=== PATIENT | male | born 1995 | race African-American/Black ===

== ENCOUNTER 2021-10-22 08:00 | Day surgery (SDC) | payer OTHER, SELFPAY ==
[2021-10-15 08:23] VITALS: BMI 31.0
--- NOTE | 2021-10-22 | PATH_ITS ---
[facility] Accession Number: [id number] . 01 Material submitted: . forehead - RIGHT FOREHEAD LIPOMA . 01 Diagnosis: Right Forehead, Excisions: Consistent with neuroma; see comment. MRV 10/25/2021 1026 Local . 01 Comment: Sections show haphazardly arranged nerve bundles in the deep dermis and superficial subcutaneous tissue, consistent with a neuroma. The subcutaneous adipose tissue could represent an associated lipoma in the appropriate clinical setting. There is no evidence of malignancy identified in sections examined. . 01 Electronically signed: . Chetan Drake MD, Dermatopathologist NPI- [id number] . 01 Gross description: . RIGHT FOREHEAD LIPOMA: Received in formalin are 2 fragments of bhakta soft tissue measuring 2.0 x 0.6 x 1.2 cm in aggregate. Tissue is inked. Specimen is sectioned and submitted in its entirety in 2 cassettes. /GRIS 10/23/2021 1851 Local . 01 Pathologist provided ICD-10: D36.10 . 01 CPT . 001852 Specimen Comment: A courtesy copy of this report has been sent to [phone] Performed at: 01 [facility] [address] [place] [address] [address] [facility], [place], [place] [id number] MD Juan Morton MD Phone: [phone]
[2021-10-22 08:30] VITALS: BP 124/71; PULSE 71; RESP 20; TEMP 37; O2SAT 98; BMI 31.0
[2021-10-22 09:11] LABS: COVID19 -Nasal RAPID Negative (Negative)
[2021-10-22] MEDS: LACTATED RINGERS 1,000 ML 42 ML IV (09:17)
--- NOTE | 2021-10-22 09:19 | PM.PREOP ---
Pre-operative Note COVID-19 COVID-19 status: Negative Result date/Date tested (Pos, Neg/Pending): 10/22/21 Interval Note History & Physical reviewed/Exam performed by Physician: Yes Changes to H&P: No H&P completed within 30 days and has changed as indicated here:: We again discussed the risks of procedure including permanent scar formation on a visible portion of the face. He understands and would like to proceed.
--- NOTE | 2021-10-22 09:35 | SUR.OPER ---
Supine on padded OR bed, head on pillow, right arm padded and tucked at side, left arm free at bedside on armboard, legs uncrossed, safety belt at thigh, tape over blanket over lower legs . directed and approved by surgeon
[2021-10-22] MEDS: LIDOCAINE 1% W/EPI 20 ML INJ (10:00)
[2021-10-22] MEDS: BUPIVACAINE 0.25% (PF) VIAL 30 ML INJ (10:00)
[2021-10-22 10:10] VITALS: BP 128/81; PULSE 60; RESP 12; TEMP 36.7; O2SAT 100
--- NOTE | 2021-10-22 10:15 | PM.OP.1 ---
Operative Date/Time/Diagnoses Date of procedure: 10/22/21 Time of procedure: 10:15 Pre-op diagnosis: Right frontal scalp soft tissue mass Post-op diagnosis: same Procedure & Clinicians Procedure: Excisional biopsy of right frontal scalp soft tissue mass Same procedure as scheduled: Yes Surgeon: Fabio Seo Operative Notes Procedure in detail: Patient was brought into the operating room and placed on the table in the supine position. Sedation was administered by Dr. Moe. Skin over the right forehead was prepped with Betadine. Drapes were applied. A time-out was performed. We injected some lidocaine with epinephrine into the skin and subcutaneous tissue over the mass. We made a 2.5 cm transverse incision over the palpable mass. We dissected down through the dermis. There was some subcutaneous adipose tissue that was prominent and this was felt to be the source of the palpable mass. There was not a very well defined. It seemed to be well invested into the deep side of the dermis and so we took a thin ellipse of skin to remove the prominent fatty tissue. We excised the fatty tissue down to the fascia. We injected some additional Marcaine into the deep layers. The specimen was about 1.5 cm x 0.5 cm by 0.5 cm. We took a small additional portion of tissue from the superior aspect of the incision. We then closed the incision in layers using multiple interrupted 4-0 Vicryl dermal sutures followed by a running 4 Monocryl subcuticular closure. Steri-Strips and a bandage were applied. EBL: 10 mL Post-operative Condition: stable Disposition: PACU
[2021-10-22 10:28] VITALS: BP 114/76; PULSE 61; RESP 14; TEMP 36.5; O2SAT 100
== END 2021-10-22 10:36 | disposition home or self-care (01) ==
PROVIDERS: Referring Provider Surgery; Visit Provider Surgery
PROC: (CPT 21012; principal; 2021-10-22 09:15)
DX: D36.10 Benign neoplasm of peripheral nerves and autonomic nervous system, unspecified (principal); K21.9 Gastro-esophageal reflux disease without esophagitis; F17.210 Nicotine dependence, cigarettes, uncomplicated; E74.01 von Gierke disease; Z20.822 Contact with and (suspected) exposure to COVID-19
CPT/HCPCS: 21012; 87635; C9803; J2250; J2704